=== PATIENT | female | born 1975 | race Caucasian/White ===

== ENCOUNTER → 2020-05-02 | Day surgery (SDC) | payer OTHER | END | disposition home or self-care (01) | LOC: JRADUS-SUR 10:43 → EDSTATUS 12:10 | PROVIDERS: ATTEND Obstetrics & Gynecology | PROC: BU46YZZ Ultrasonography of Uterus using Other Contrast (ICD-10-PCS; principal; 2020-05-02) | DX: N93.9 Abnormal uterine and vaginal bleeding, unspecified (principal); D25.9 Leiomyoma of uterus, unspecified | CPT/HCPCS: 76831; 84703 ==